=== PATIENT | female | born 1965 | race Caucasian/White ===

== ENCOUNTER 2016-11-23 18:22 | Emergency (ER) | payer MEDICARE, MEDICAID ==
[2016-11-23] MEDS ORDERED: FENTANYL CITRATE INJ/PF 100 MCG/2 ML AMPUL IV PRN (19:07)
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
[2016-11-23] MEDS ORDERED: KETOROLAC TROMETHAMINE INJ/PF 30 MG/1 ML SDV IV ONE (20:25)
[2016-11-23] MEDS ORDERED: HYDROCODONE/ACETAMINOPHEN 5-325 MG 6 TAB/DSPK PO PRN (20:26)
[2016-11-23] MEDS ORDERED: LIDOCAINE 5% (700 MG) TRANSDERMAL ADH..PATCH TP ONE (20:26)
[2016-11-23 21:06] VITALS: BP 138/98
== END 2016-11-23 20:57 | disposition home or self-care (01) ==
LOC: ER 18:22
DX: M54.2 Cervicalgia (principal); M54.5 Low back pain; V89.2XXA Person injured in unspecified motor-vehicle accident, traffic, initial encounter; Z98.1 Arthrodesis status
CPT/HCPCS: 99284; 96374; 72125; 72131; J3010; A9270

== ENCOUNTER → 2017-03-25 | Outpatient (CLI) | payer MEDICARE, MEDICAID ==
[2017-03-25 17:58] LABS: ABSOLUTE BASOPHILS # (AUTO) 0.1 10^3/uL (0.0-0.2); ABSOLUTE EOSINOPHILS # (AUTO) 0.5 10^3/uL (0.0-0.6); ABSOLUTE MONOCYTES (AUTO) 0.5 10^3/uL (0.1-1.4); BASOPHILS % (AUTO) 1.1 % (0-2); EOSINOPHILS % (AUTO) 6.8 % (0-6); HEMATOCRIT 40.8 % (36.0-47.0); HEMOGLOBIN 14.2 g/dL (12.0-15.5); HGB HCT DIFFERENCE 1.8; LYMPHOCYTES % (AUTO) 28.1 % (13-45); MEAN CORPUSCULAR HEMOGLOBIN 30.8 pg (27.0-33.4); MEAN CORPUSCULAR HGB CONC 34.9 g/dL (32.0-36.0); MEAN CORPUSCULAR VOLUME 89 fl (80-97); MONOCYTES % (AUTO) 7.5 % (3-13); RED BLOOD COUNT 4.61 10^6/uL (3.72-5.28); RED CELL DISTRIBUTION WIDTH 13.7 % (11.5-14.0); SEGMENTED NEUTROPHILS % (AUTO) 56.5 % (42-78); WHITE BLOOD COUNT 7.1 10^3/uL (4.0-10.5)
[2017-03-25 18:09] LABS: PROTHROMBIN TIME 12.6 SEC (11.4-15.4)
[2017-03-25 18:10] LABS: PARTIAL THROMBOPLASTIN TIME 28.1 SEC (23.5-35.8)
[2017-03-25 18:21] LABS: ALANINE AMINOTRANSFERASE 83 U/L (9-52); ALBUMIN 4.4 g/dL (3.5-5.0); ALKALINE PHOSPHATASE 62 U/L (38-126); ANION GAP 12 (5-19); ASPARTATE AMINO TRANSFERASE 64 U/L (14-36); BILIRUBIN,DIRECT 0.4 mg/dL (0.0-0.4); BILIRUBIN,TOTAL 0.5 mg/dL (0.2-1.3); BLOOD UREA NITROGEN 19 mg/dL (7-20); CALCIUM 9.9 mg/dL (8.4-10.2); CARBON DIOXIDE 23 mmol/L (22-30); CHLORIDE 105 mmol/L (98-107); CREATININE RESULT 0.88 mg/dL (0.52-1.25); GLUCOSE 84 mg/dL (75-110); MAGNESIUM 1.8 mg/dL (1.6-2.3); POTASSIUM 4.7 mmol/L (3.6-5.0); SODIUM 139.8 mmol/L (137-145); TOTAL PROTEIN 7.9 g/dL (6.3-8.2)
[2017-03-25 18:22] LABS: D-DIMER < 0.27 ug/mL (0.00-0.50)
== END ==
LOC: OD 16:52
PROVIDERS: ATTEND Physician Assistant Medical
DX: R53.83 Other fatigue (principal); R07.89 Other chest pain; R06.02 Shortness of breath; R55 Syncope and collapse
CPT/HCPCS: 36415; 80053; 83735; 83880; 84443; 85025; 85379; 85610; 85730

== ENCOUNTER → 2017-04-04 | Outpatient (CLI) | payer MEDICARE, MEDICAID ==
--- NOTE | 2017-04-04 18:52 | RADIOLOGY REPORT (SQ) ---
EXAM DESCRIPTION: CT ABD/PELVIS WITH IV ONLY COMPLETED DATE/TIME: 04/04/2017 6:28 pm REASON FOR STUDY: Unspecified abdominal pain, Nausea with vomiting, unspecified R10.9 UNSPECIFIED A BDOMINAL PAIN COMPARISON: 03/26/2012 TECHNIQUE: CT scan of the abdomen and pelvis performed using helical scanning technique with dynamic intravenous contrast injection. No oral contrast. Images reviewed with lung, soft tissue, and bone windows. Reconstructed coronal and sagittal MPR images reviewed. Delayed images for evaluation of the urinary system also acquired. All images stored on PACS. All CT scanners at this facility use dose modulation, iterative reconstruction, and/or weight based d osing when appropriate to reduce radiation dose to as low as reasonably achievable (ALARA). [facility]: Dose Right [facility]: CareDose [facility]: Dose Right [facility]: Teradose 4D [facility]: [employer] CONTRAST TYPE AND DOSE: contrast/concentration: Isovue 300.00 mg/ml; Total Contrast Delivered: 100.0 ml; Total Saline Delivered: 72.0 ml RENAL FUNCTION: Creatinine 0.9 BUN 18 RADIATION DOSE: Up-to-date CT equipment and radiation dose reduction techniques were employed. CTDIv ol: 9.4 - 12.8 mGy. DLP: 1143 mGy-cm.. LIMITATIONS: None. FINDINGS: LOWER CHEST: No significant findings. No nodules or infiltrates. LIVER: Normal size. No masses. No dilated ducts. SPLEEN: Normal size. No focal lesions. PANCREAS: No masses. No significant calcifications. No adjacent inflammation or peripancreatic fluid collections. Pancreatic duct not dilated. GALLBLADDER: Surgically absent. ADRENAL GLANDS: No significant masses or asymmetry. RIGHT KIDNEY AND URETER: Surgically absent. LEFT KIDNEY AND URETER: No solid masses. No significant calcifications. No hydronephrosis or hydr oureter. AORTA AND VESSELS: No aneurysm. No dissection. Renal arteries, SMA, celiac without stenosis. RETROPERITONEUM: There are multiple small nonspecific periaortic and mesenteric nodes. BOWEL AND PERITONEAL CAVITY: There are scattered sigmoid diverticula. History states is the patient is at a large part of her: Removed, but that is not evident on this study. APPENDIX: Not identified. PELVIS: Urinary bladder is normal. Uterus is absent. There is no adnexal mass or fluid collection. ABDOMINAL WALL: No masses. No hernias. BONES: No significant or acute findings. OTHER: No other significant finding. IMPRESSION: The study is essentially normal. There are multiple small nonspecific periaortic and me senteric nodes. TECHNICAL DOCUMENTATION: JOB ID: [id number] Quality ID # [id number]: Final reports with documentation of one or more dose reduction techniques (e.g., Au tomated exposure control, adjustment of the mA and/or kV according to patient size, use of iterative reconstruction technique) 2010 [email or web address]- All Rights Reserved
== END ==
LOC: RAD 17:19
PROVIDERS: ATTEND Physician Assistant Medical
DX: R10.9 Unspecified abdominal pain (principal); R11.2 Nausea with vomiting, unspecified
CPT/HCPCS: 74177

== ENCOUNTER → 2017-04-04 | Outpatient (CLI) | payer MEDICARE, MEDICAID ==
[2017-04-04 17:19] LABS: ABSOLUTE BASOPHILS # (AUTO) 0.1 10^3/uL (0.0-0.2); ABSOLUTE EOSINOPHILS # (AUTO) 0.5 10^3/uL (0.0-0.6); ABSOLUTE LYMPHOCYTES (AUTO) 1.9 10^3/uL (0.5-4.7); ABSOLUTE MONOCYTES (AUTO) 0.7 10^3/uL (0.1-1.4); ABSOLUTE NEUT (AUTO) 4.7 10^3/uL (1.7-8.2); BASOPHILS % (AUTO) 1.2 % (0-2); EOSINOPHILS % (AUTO) 6.3 % (0-6); HEMATOCRIT 41.5 % (36.0-47.0); HEMOGLOBIN 14.3 g/dL (12.0-15.5); HGB HCT DIFFERENCE 1.4; LYMPHOCYTES % (AUTO) 24.4 % (13-45); MEAN CORPUSCULAR HEMOGLOBIN 30.5 pg (27.0-33.4); MEAN CORPUSCULAR HGB CONC 34.4 g/dL (32.0-36.0); MEAN CORPUSCULAR VOLUME 89 fl (80-97); MONOCYTES % (AUTO) 8.6 % (3-13); RED BLOOD COUNT 4.67 10^6/uL (3.72-5.28); RED CELL DISTRIBUTION WIDTH 14.1 % (11.5-14.0); SEGMENTED NEUTROPHILS % (AUTO) 59.5 % (42-78)
[2017-04-04 17:45] LABS: ALBUMIN 4.5 g/dL (3.5-5.0); ALKALINE PHOSPHATASE 65 U/L (38-126); ANION GAP 12 (5-19); BILIRUBIN,DIRECT 0.4 mg/dL (0.0-0.4); BILIRUBIN,TOTAL 0.6 mg/dL (0.2-1.3); BLOOD UREA NITROGEN 18 mg/dL (7-20); CALCIUM 10.2 mg/dL (8.4-10.2); CARBON DIOXIDE 27 mmol/L (22-30); CHLORIDE 104 mmol/L (98-107); CREATININE RESULT 0.86 mg/dL (0.52-1.25); GLUCOSE 100 mg/dL (75-110); SODIUM 143.1 mmol/L (137-145); TOTAL PROTEIN 8.2 g/dL (6.3-8.2)
[2017-04-04 17:49] LABS: ALANINE AMINOTRANSFERASE 115 U/L (9-52); ASPARTATE AMINO TRANSFERASE 85 U/L (14-36); POTASSIUM 5.1 mmol/L (3.6-5.0)
== END ==
LOC: LAB 17:06
PROVIDERS: ATTEND Internal Medicine Cardiovascular Disease
DX: R10.9 Unspecified abdominal pain (principal); R11.2 Nausea with vomiting, unspecified
CPT/HCPCS: 36415; 80053; 83690; 85025

== ENCOUNTER 2017-05-25 06:24 | Emergency (ER) | payer MEDICARE, MEDICAID ==
[2017-05-25] MEDS ORDERED: HYDROMORPHONE HCL INJ/PF 2 MG/ML AMPULE IV ONE (06:53)
[2017-05-25] MEDS ORDERED: NORMAL SALINE 1000 ML 1,000 ML IV ONE (06:53)
[2017-05-25] MEDS ORDERED: ONDANSETRON HCL INJ/PF 4 MG/2 ML SDV IV ONE (06:53)
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
--- NOTE | 2017-05-25 07:27 | RADIOLOGY REPORT (SQ) ---
EXAM DESCRIPTION: ACUTE ABDOMEN SERIES COMPLETED DATE/TIME: 05/25/2017 7:17 am REASON FOR STUDY: abd pain, hx bowel resection COMPARISON: CT abdomen and pelvis 04/04/2017, chest x-ray 03/26/2012. NUMBER OF VIEWS: Three views. TECHNIQUE: Frontal chest, supine abdomen and upright/decubitus abdomen radiographic images acquired. LIMITATIONS: None. FINDINGS: CHEST: Lungs clear of infiltrates. FREE AIR: None. BOWEL GAS PATTERN: Nonobstructive pattern. No dilated loops or air fluid levels. CALCIFICATIONS: No suspicious calcifications. HARDWARE: Multiple surgical clips in the abdomen. SOFT TISSUES: No gross mass or suggestion of organomegaly. BONES: Healed fracture at the left clavicle. Postsurgical changes with orthopedic hardware placement at the lower lumbar spine. IMPRESSION: Nonobstructive bowel gas pattern. TECHNICAL DOCUMENTATION: JOB ID: [id number] [place]-64 2010 [employer]- All Rights Reserved
[2017-05-25 07:36] LABS: ABSOLUTE BASOPHILS # (AUTO) 0.1 10^3/uL (0.0-0.2); ABSOLUTE EOSINOPHILS # (AUTO) 0.3 10^3/uL (0.0-0.6); ABSOLUTE LYMPHOCYTES (AUTO) 1.4 10^3/uL (0.5-4.7); ABSOLUTE MONOCYTES (AUTO) 0.5 10^3/uL (0.1-1.4); ABSOLUTE NEUT (AUTO) 4.5 10^3/uL (1.7-8.2); BASOPHILS % (AUTO) 1.2 % (0-2); EOSINOPHILS % (AUTO) 5.1 % (0-6); HEMATOCRIT 40.8 % (36.0-47.0); HEMOGLOBIN 13.9 g/dL (12.0-15.5); HGB HCT DIFFERENCE 0.9; LYMPHOCYTES % (AUTO) 20.3 % (13-45); MEAN CORPUSCULAR HEMOGLOBIN 30.3 pg (27.0-33.4); MEAN CORPUSCULAR HGB CONC 34.1 g/dL (32.0-36.0); MEAN CORPUSCULAR VOLUME 89 fl (80-97); MONOCYTES % (AUTO) 7.7 % (3-13); RED BLOOD COUNT 4.58 10^6/uL (3.72-5.28); RED CELL DISTRIBUTION WIDTH 13.8 % (11.5-14.0); SEGMENTED NEUTROPHILS % (AUTO) 65.7 % (42-78); WHITE BLOOD COUNT 6.8 10^3/uL (4.0-10.5)
[2017-05-25 07:57] LABS: ALANINE AMINOTRANSFERASE 83 U/L (9-52); ALKALINE PHOSPHATASE 61 U/L (38-126); ANION GAP 11 (5-19); ASPARTATE AMINO TRANSFERASE 72 U/L (14-36); BILIRUBIN,DIRECT 0.4 mg/dL (0.0-0.4); BILIRUBIN,TOTAL 0.5 mg/dL (0.2-1.3); BLOOD UREA NITROGEN 15 mg/dL (7-20); CALCIUM 9.3 mg/dL (8.4-10.2); CARBON DIOXIDE 27 mmol/L (22-30); CHLORIDE 105 mmol/L (98-107); GLUCOSE 91 mg/dL (75-110); LIPASE 123.6 U/L (23-300); POTASSIUM 5.2 mmol/L (3.6-5.0); SODIUM 142.9 mmol/L (137-145); TOTAL PROTEIN 7.4 g/dL (6.3-8.2)
[2017-05-25] MEDS ORDERED: HALOPERIDOL LACTATE INJ 5 MG/1 ML VIAL IV ONE (08:14)
--- NOTE | 2017-05-25 11:08 | RADIOLOGY REPORT (SQ) ---
EXAM DESCRIPTION: CT ABD/PELVIS WITH IV ORAL COMPLETED DATE/TIME: 05/25/2017 10:49 am REASON FOR STUDY: LLQ pain, hx of bowel resection diverticulitis COMPARISON: March 2012 TECHNIQUE: CT scan of the abdomen and pelvis performed using helical scanning technique with dynamic intravenous contrast injection and oral contrast. Images reviewed with lung, soft tissue, and bone w indows. Reconstructed coronal and sagittal MPR images reviewed. Delayed images for evaluation of the urinary system also acquired. All images stored on PACS. All CT scanners at this facility use dose modulation, iterative reconstruction, and/or weight based d osing when appropriate to reduce radiation dose to as low as reasonably achievable (ALARA). [facility]: Dose Right [facility]: CareDose [facility]: Dose Right [facility]: Teradose 4D [facility]: I Do Now I Don't CONTRAST TYPE AND DOSE: contrast/concentration: Isovue 370.00 mg/ml; Total Contrast Delivered: 94.0 ml; Total Saline Delivered: 71.0 ml RENAL FUNCTION: Creatinine 0.9 RADIATION DOSE: Up-to-date CT equipment and radiation dose reduction techniques were employed. CTDIv ol: 13.0 - 16.4 mGy. DLP: 1572 mGy-cm.. LIMITATIONS: None. FINDINGS: LOWER CHEST: No significant findings. No nodules or infiltrates. LIVER: Normal size. No masses. No dilated ducts. SPLEEN: Normal size. No focal lesions. PANCREAS: No masses. No significant calcifications. No adjacent inflammation or peripancreatic fluid collections. Pancreatic duct not dilated. GALLBLADDER: Status post cholecystectomy ADRENAL GLANDS: No significant masses or asymmetry. RIGHT KIDNEY AND URETER: Status post right nephrectomy LEFT KIDNEY AND URETER: No solid masses. No significant calcifications. No hydronephrosis or hydr oureter. AORTA AND VESSELS: No aneurysm. No dissection. Renal arteries, SMA, celiac without stenosis. RETROPERITONEUM: No retroperitoneal adenopathy, hemorrhage or masses. BOWEL AND PERITONEAL CAVITY: No masses or inflammatory changes. No free fluid or peritoneal masses. APPENDIX: Status post appendectomy PELVIS: No mass. No free fluid. Normal bladder. Postsurgical changes are identified related to a pr ior bowel resection. ABDOMINAL WALL: No masses. No hernias. BONES: No significant or acute findings. OTHER: Postsurgical changes are identified at the lumbosacral junction IMPRESSION: NO SIGNIFICANT OR ACUTE FINDING IN THE ABDOMEN OR PELVIS. TECHNICAL DOCUMENTATION: JOB ID: [id number] Quality ID # [id number]: Final reports with documentation of one or more dose reduction techniques (e.g., Au tomated exposure control, adjustment of the mA and/or kV according to patient size, use of iterative reconstruction technique) 2010 [employer]- All Rights Reserved
[2017-05-25 12:04] VITALS: BP 129/84
--- NOTE | 2017-05-25 16:29 | PDOC CONSULTATION ---
Consultation Consult Date: 05/25/17 Attending physician:: BYRON ACEVEDO Consult reason:: Abdominal pain History of Present Illness Patient complains of: Abdominal pain for 2 weeks History of Present Illness: JUVENCIO BURNS is a 51 year old female with a long history of abdominal problems and surgeries. Recently she has been having abdominal pain for 2 weeks. She has had twice a day diarrhea to this time. Past Surgical History Past Surgical History: Reports: Section, Other - She has had multiple abdominal surgeries. Social History Smoking Status: Never Smoker Family History Family History: Reviewed & Not Pertinent Parental Family History Reviewed: No Children Family History Reviewed: No Sibling(s) Family History Reviewed.: No Medication/Allergy Home Medications: No Home Medications 05/25/17 Allergies/Adverse Reactions: cyclobenzaprine [From Flexeril] Allergy (Verified 05/25/17 07:43) methocarbamol [From Robaxin] Allergy (Verified 05/25/17 07:43) tramadol Allergy (Verified 05/25/17 07:43) Benzodiazepines Adverse Reaction (Verified 05/25/17 07:43) steroids Allergy (Uncoded 05/25/17 07:43) muscle relaxers Adverse Reaction (Uncoded 05/25/17 07:43) Physical Exam Vital Signs: Temp Pulse Resp BP Pulse Ox 98.0 F 89 18 129/84 H 100 05/25/17 12:03 05/25/17 12:03 05/25/17 12:03 05/25/17 12:03 05/25/17 12:03 Intake & Output 05/24/17 05/25/17 05/26/17 06:59 06:59 06:59 Weight 87.09 kg General appearance: PRESENT: no acute distress Head exam: PRESENT: atraumatic, normocephalic Eye exam: PRESENT: EOMI, PERRLA Ear exam: PRESENT: normal external ear exam Neck exam: PRESENT: full ROM Respiratory exam: PRESENT: clear to auscultation wolf. ABSENT: rales, rhonchi Cardiovascular exam: PRESENT: RRR Pulses: PRESENT: normal radial pulses GI/Abdominal exam: PRESENT: normal bowel sounds, soft. ABSENT: rebound, tenderness Rectal exam: PRESENT: deferred Extremities exam: PRESENT: full ROM Musculoskeletal exam: PRESENT: full ROM Neurological exam: PRESENT: alert, awake, oriented to person, oriented to place , oriented to time, oriented to situation Psychiatric exam: PRESENT: normal mood Skin exam: PRESENT: normal color Results Laboratory Results: 05/25/17 07:23 05/25/17 07:23 05/25/17 05/25/17 07:23 07:23 WBC 6.8 RBC 4.58 Hgb 13.9 Hct 40.8 MCV 89 MCH 30.3 MCHC 34.1 RDW 13.8 Plt Count 201 Seg Neutrophils % 65.7 Lymphocytes % 20.3 Monocytes % 7.7 Eosinophils % 5.1 Basophils % 1.2 Absolute Neutrophils 4.5 Absolute Lymphocytes 1.4 Absolute Monocytes 0.5 Absolute Eosinophils 0.3 Absolute Basophils 0.1 Sodium 142.9 Potassium 5.2 H Chloride 105 Carbon Dioxide 27 Anion Gap 11 BUN 15 Creatinine 0.90 Est GFR ( Amer) > 60 Est GFR (Non-Af Amer) > 60 Glucose 91 Calcium 9.3 Total Bilirubin 0.5 AST 72 H ALT 83 H Alkaline Phosphatase 61 Total Protein 7.4 Albumin 4.0 Lipase 123.6 Impressions: Abdomen/Pelvis CT 05/25/17 00:00 IMPRESSION: NO SIGNIFICANT OR ACUTE FINDING IN THE ABDOMEN OR PELVIS. Acute Abdomen Series 05/25/17 06:46 IMPRESSION: Nonobstructive bowel gas pattern. Status: Imported from PACS - I reviewed the CT scan and abdominal films and agree with the radiologist. Assessment & Plan - Diagnosis (1) Abdominal pain Qualifiers: Abdominal location: left lower quadrant Qualified Code(s): R10.32 - Left lower quadrant pain Plan: Feel this patient's primary problem is obstipation. She has a colon full of stool. I discussed with her and her bowel regimens for cleansing and maintenance of function. I discussed my findings with the ER physician. She does not have a surgical abdomen and does not require admission.
== END 2017-05-25 12:04 | disposition home or self-care (01) ==
LOC: ER 06:24
DX: K59.00 Constipation, unspecified (principal); R10.32 Left lower quadrant pain; R11.2 Nausea with vomiting, unspecified
CPT/HCPCS: 99285; 96361; 96374; 96375; 36415; 83690; 85025; 80053; 74022; 74177; J1630; J1170; J2405; J7030

== ENCOUNTER 2017-09-06 14:20 | Emergency (ER) | payer MEDICARE, MEDICAID ==
[2017-09-06] MEDS ORDERED: ONDANSETRON HCL INJ/PF 4 MG/2 ML SDV IV ONE (14:39)
[2017-09-06] MEDS ORDERED: NORMAL SALINE 1000 ML 1,000 ML IV ONE ×2 (14:40→15:42)
--- NOTE | 2017-09-06 14:42 | ER Document Report ---
ED Medical Screen (RME) - General Chief Complaint: Chest Pain Stated Complaint: CHEST PAIN Time Seen by Provider: 09/06/17 14:37 Notes: Patient complaining of inability to stop vomiting. Chest pain. Abdominal pain. Unable to answer questions at triage. Patient saying "help me, help me, do not let me !" I have greeted and performed a rapid initial assessment of this patient. A comprehensive ED assessment and evaluation of the patient, analysis of test results and completion of the medical decision making process will be conducted by additional ED providers. TRAVEL OUTSIDE OF THE [place] IN LAST 30 DAYS: No - Related Data Allergies/Adverse Reactions: cyclobenzaprine [From Flexeril] Allergy (Verified 09/06/17 14:39) methocarbamol [From Robaxin] Allergy (Verified 09/06/17 14:39) tramadol Allergy (Verified 09/06/17 14:39) Benzodiazepines Adverse Reaction (Verified 09/06/17 14:39) steroids Allergy (Uncoded 09/06/17 14:39) muscle relaxers Adverse Reaction (Uncoded 09/06/17 14:39) Past Medical History Renal/ Medical History: Denies: Hx Peritoneal Dialysis Past Surgical History: Reports: Hx Bowel Surgery, Hx Section, Other - She has had multiple abdominal surgeries. - Immunizations Hx Diphtheria, Pertussis, Tetanus Vaccination: Yes Physical Exam - Vital signs Vitals: Temp Pulse Resp BP Pulse Ox 98.1 F 123 H 20 132/92 H 98 09/06/17 14:34 09/06/17 14:34 09/06/17 14:34 09/06/17 14:34 09/06/17 14:34 Course - Vital Signs Vital signs: Temp Pulse Resp BP Pulse Ox 98.1 F 123 H 20 132/92 H 98 09/06/17 14:34 09/06/17 14:34 09/06/17 14:34 09/06/17 14:34 09/06/17 14:34
[2017-09-06] MEDS ORDERED: ONDANSETRON HCL INJ/PF 4 MG/2 ML SDV ONE (14:54)
[2017-09-06 15:25] LABS: ABSOLUTE BASOPHILS # (AUTO) 0.1 10^3/uL (0.0-0.2); ABSOLUTE EOSINOPHILS # (AUTO) 0.4 10^3/uL (0.0-0.6); ABSOLUTE LYMPHOCYTES (AUTO) 3.1 10^3/uL (0.5-4.7); ABSOLUTE MONOCYTES (AUTO) 0.7 10^3/uL (0.1-1.4); ABSOLUTE NEUT (AUTO) 5.1 10^3/uL (1.7-8.2); BASOPHILS % (AUTO) 1.1 % (0-2); EOSINOPHILS % (AUTO) 3.9 % (0-6); HEMATOCRIT 45.2 % (36.0-47.0); HEMOGLOBIN 15.3 g/dL (12.0-15.5); LYMPHOCYTES % (AUTO) 32.7 % (13-45); MEAN CORPUSCULAR HEMOGLOBIN 29.5 pg (27.0-33.4); MEAN CORPUSCULAR HGB CONC 33.8 g/dL (32.0-36.0); MEAN CORPUSCULAR VOLUME 87 fl (80-97); MONOCYTES % (AUTO) 7.9 % (3-13); PLATELET COUNT 261 10^3/uL (150-450); RED BLOOD COUNT 5.17 10^6/uL (3.72-5.28); RED CELL DISTRIBUTION WIDTH 15.4 % (11.5-14.0); SEGMENTED NEUTROPHILS % (AUTO) 54.4 % (42-78); TOTAL CELLS COUNTED % (AUTO) 100 %; WHITE BLOOD COUNT 9.4 10^3/uL (4.0-10.5)
--- NOTE | 2017-09-06 15:27 | RADIOLOGY REPORT (SQ) ---
EXAM DESCRIPTION: CT ABD/PELVIS NO ORAL OR IV COMPLETED DATE/TIME: 09/06/2017 3:11 pm REASON FOR STUDY: abd pain COMPARISON: 05/25/2017. TECHNIQUE: CT scan of the abdomen and pelvis performed without intravenous or oral contrast. Images reviewed with lung, soft tissue, and bone windows. Reconstructed coronal and sagittal MPR images revi ewed. All images stored on PACS. All CT scanners at this facility use dose modulation, iterative reconstruction, and/or weight based d osing when appropriate to reduce radiation dose to as low as reasonably achievable (ALARA). [facility]: Dose Right [facility]: CareDose [facility]: Dose Right [facility]: Teradose 4D [facility]: Augmenix RADIATION DOSE: CT Rad equipment meets quality standard of care and radiation dose reduction techniq ues were employed. CTDIvol: 10.7 mGy. DLP: 579 mGy-cm.mGy. LIMITATIONS: None. FINDINGS: LOWER CHEST: No significant findings. No nodules or infiltrates. NON-CONTRASTED LIVER, SPLEEN, ADRENALS: Evaluation limited by lack of IV contrast. No identified sign ificant masses. PANCREAS: No masses. No peripancreatic inflammatory changes. GALLBLADDER: Surgically absent. RIGHT KIDNEY AND URETER: Surgically absent. LEFT KIDNEY AND URETER: No solid masses. No significant calcification. No hydronephrosis or hydrouret er. AORTA AND RETROPERITONEUM: No aneurysm. No retroperitoneal masses or adenopathy. BOWEL AND PERITONEAL CAVITY: No obvious masses or inflammatory changes. No free fluid. APPENDIX: Normal. PELVIS, BLADDER, AND ABDOMINAL WALL:No abnormal masses. No free fluid. Bladder normal. BONES: No significant findings. Surgical changes in the spine with hardware. OTHER: No other significant finding. IMPRESSION: SURGICAL CHANGES. NO SIGNIFICANT OR ACUTE PROCESS IN THE ABDOMEN OR PELVIS. TECHNICAL DOCUMENTATION: JOB ID: [id number] Quality ID # [id number]: Final reports with documentation of one or more dose reduction techniques (e.g., Au tomated exposure control, adjustment of the mA and/or kV according to patient size, use of iterative reconstruction technique) 2010 [employer]- All Rights Reserved
--- NOTE | 2017-09-06 15:33 | RADIOLOGY REPORT (SQ) ---
EXAM DESCRIPTION: CHEST SINGLE VIEW COMPLETED DATE/TIME: 09/06/2017 3:26 pm REASON FOR STUDY: chest pain COMPARISON: 03/26/2012. EXAM PARAMETERS: NUMBER OF VIEWS: One view. TECHNIQUE: Single frontal radiographic view of the chest acquired. RADIATION DOSE: NA LIMITATIONS: None. FINDINGS: LUNGS AND PLEURA: No opacities, masses or pneumothorax. No pleural effusion. MEDIASTINUM AND HILAR STRUCTURES: No masses. Contour normal. HEART AND VASCULAR STRUCTURES: Heart normal in size. Normal vasculature. BONES: No acute findings. HARDWARE: None in the chest. OTHER: No other significant finding. IMPRESSION: NO ACUTE RADIOGRAPHIC FINDING IN THE CHEST. TECHNICAL DOCUMENTATION: JOB ID: [id number] [employer]- All Rights Reserved
[2017-09-06 15:58] LABS: ALANINE AMINOTRANSFERASE 86 U/L (9-52); ALBUMIN 4.6 g/dL (3.5-5.0); ALKALINE PHOSPHATASE 64 U/L (38-126); ANION GAP 16 (5-19); ASPARTATE AMINO TRANSFERASE 68 U/L (14-36); BILIRUBIN,DIRECT 0.5 mg/dL (0.0-0.4); BILIRUBIN,TOTAL 0.5 mg/dL (0.2-1.3); BLOOD UREA NITROGEN 17 mg/dL (7-20); CALCIUM 10.6 mg/dL (8.4-10.2); CARBON DIOXIDE 17 mmol/L (22-30); CHLORIDE 108 mmol/L (98-107); GLUCOSE 90 mg/dL (75-110); LIPASE 86.2 U/L (23-300); POTASSIUM 4.4 mmol/L (3.6-5.0); SODIUM 140.6 mmol/L (137-145); TOTAL PROTEIN 8.3 g/dL (6.3-8.2)
[2017-09-06] MEDS ORDERED: FAMOTIDINE INJ/PF 20 MG/2 ML SDV IV ONE (16:29)
[2017-09-06 17:41] LABS: APPEARANCE,URINE SLIGHTLY-CLOUDY; BILIRUBIN,URINE NEGATIVE (NEGATIVE); COLOR,URINE YELLOW; GLUCOSE, URINE NEGATIVE (NEGATIVE); KETONES,URINE NEGATIVE (NEGATIVE); LEUKOCYTE ESTERASE,URINE MODERATE (NEGATIVE); NITRITE,URINE NEGATIVE (NEGATIVE); PROTEIN,URINE 30 mg/dL (NEGATIVE); URINE SPECIFIC GRAVITY 1.002; UROBILINOGEN,URINE NEGATIVE mg/dL (<2.0)
[2017-09-06 17:50] LABS: URINE AMPHETAMINES SCREEN NEGATIVE; URINE BARBITURATES SCREEN NEGATIVE; URINE BENZODIAZEPINES SCREEN NEGATIVE; URINE COCAINE SCREEN NEGATIVE; URINE MARIJUANA (THC) SCREEN NEGATIVE; URINE METHADONE SCREEN NEGATIVE; URINE PHENCYCLIDINE SCREEN NEGATIVE
[2017-09-06 18:26] VITALS: BP 189/123
--- NOTE | 2017-09-06 18:31 | EKG REPORT ---
SEVERITY:- ABNORMAL ECG - SINUS TACHYCARDIA NONSPECIFIC ST-T CHANGES ANTERIOR LEADS : Confirmed by: Serafin Bustos MD 06-Sep-2017 18:29:56
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
== END 2017-09-06 18:30 | disposition left against medical advice (07) ==
LOC: ER 14:20
DX: R11.2 Nausea with vomiting, unspecified (principal); R19.7 Diarrhea, unspecified; R07.9 Chest pain, unspecified; R10.13 Epigastric pain; Z88.6 Allergy status to analgesic agent
CPT/HCPCS: 93005; 99285; 96361; 96374; 96375; 36415; 83690; 84703; 85025; 80053; 81001; 84484; 80307; 85379; 71045; 74176; 93010; J2405; J7030; S0028

== ENCOUNTER → 2017-10-23 | Outpatient (CLI) | payer MEDICARE, MEDICAID ==
--- NOTE | 2017-10-23 10:24 | RADIOLOGY REPORT (SQ) ---
EXAM DESCRIPTION: U/S RETROPERITON (RENAL/AORTA) COMPLETED DATE/TIME: 10/23/2017 9:41 am REASON FOR STUDY: RENAL ARTERY STENOSIS I10 ESSENTIAL (PRIMARY) HYPERTENSION I70.1 ATHEROSCLEROSIS OF RENAL ARTERY COMPARISON: None. TECHNIQUE: Dynamic and static grayscale images acquired of the kidneys and bladder and recorded on P ACS. Additional selected color Doppler and spectral images recorded. LIMITATIONS: None. FINDINGS: RIGHT KIDNEY: Status post right nephrectomy LEFT KIDNEY: 11.8 cm in length. Normal echogenicity. No solid or suspicious masses. No hydrone phrosis. No calcifications. BLADDER: No masses. OTHER FINDINGS: No other significant finding. IMPRESSION: Status post right nephrectomy. No significant left renal abnormalities are identified. TECHNICAL DOCUMENTATION: JOB ID: [id number] [employer]- All Rights Reserved Reading location - IP/workstation name: [email or web address]
--- NOTE | 2017-10-23 10:25 | RADIOLOGY REPORT (SQ) ---
EXAM DESCRIPTION: U/S LTD DUPLEX ART/MAGALY FLOW COMPLETED DATE/TIME: 10/23/2017 9:41 am REASON FOR STUDY: RENAL ARTERY STENOSIS I10 ESSENTIAL (PRIMARY) HYPERTENSION I70.1 ATHEROSCLEROSIS OF RENAL ARTERY COMPARISON: None. TECHNIQUE: Realtime and static grayscale images acquired. Selected color Doppler, velocities and spe ctral images recorded. LIMITATIONS: None. FINDINGS: RIGHT KIDNEY: KIDNEY: Status post right nephrectomy. LEFT KIDNEY: RENAL ARTERY VELOCITIES: 74 cm/sec. Segmental artery velocity 55 cm/sec. RENAL VEIN: Color doppler flow present, patent. VELOCITY RATIO: 1.13. Normal waveforms. KIDNEY: See results under renal ultrasound BLADDER: Normal. OTHER: No other significant finding. IMPRESSION: NO DOPPLER EVIDENCE OF HEMODYNAMICALLY SIGNIFICANT RENAL ARTERY STENOSIS in the left dorothy al artery. Patient is status post right nephrectomy. COMMENT: NORMAL RENAL ARTERY/AORTA VELOCITY RATIO IS LESS THAN OR EQUAL TO 3.5. TECHNICAL DOCUMENTATION: JOB ID: [id number] [employer]- All Rights Reserved Reading location - IP/workstation name: [email or web address]
== END ==
LOC: RAD 07:54
PROVIDERS: ATTEND Internal Medicine Cardiovascular Disease
DX: I10 Essential (primary) hypertension (principal); I70.1 Atherosclerosis of renal artery
CPT/HCPCS: 76770; 93976

== ENCOUNTER 2017-11-23 07:59 | Emergency (ER) | payer MEDICARE, MEDICAID ==
[2017-11-23] MEDS ORDERED: ONDANSETRON HCL INJ/PF 4 MG/2 ML SDV IV ONE (08:44)
[2017-11-23] MEDS ORDERED: NORMAL SALINE 1000 ML 1,000 ML IV ONE (08:44)
[2017-11-23] MEDS ORDERED: HYDROMORPHONE HCL INJ/PF 2 MG/ML AMPULE IV ONE ×3 (08:45→16:21)
--- NOTE | 2017-11-23 09:25 | EKG REPORT ---
SEVERITY:- OTHERWISE NORMAL ECG - SINUS TACHYCARDIA : Confirmed by: Mannie Tapia 23-Nov-2017 09:24:30
[2017-11-23 09:28] LABS: ABSOLUTE BASOPHILS # (AUTO) 0.1 10^3/uL (0.0-0.2); ABSOLUTE EOSINOPHILS # (AUTO) 0.1 10^3/uL (0.0-0.6); ABSOLUTE LYMPHOCYTES (AUTO) 1.6 10^3/uL (0.5-4.7); ABSOLUTE MONOCYTES (AUTO) 0.6 10^3/uL (0.1-1.4); ABSOLUTE NEUT (AUTO) 6.7 10^3/uL (1.7-8.2); EOSINOPHILS % (AUTO) 0.8 % (0-6); HEMATOCRIT 42.5 % (36.0-47.0); HEMOGLOBIN 14.4 g/dL (12.0-15.5); LYMPHOCYTES % (AUTO) 17.7 % (13-45); MEAN CORPUSCULAR HEMOGLOBIN 29.7 pg (27.0-33.4); MEAN CORPUSCULAR HGB CONC 33.9 g/dL (32.0-36.0); MEAN CORPUSCULAR VOLUME 88 fl (80-97); MONOCYTES % (AUTO) 6.7 % (3-13); PLATELET COUNT 270 10^3/uL (150-450); RED BLOOD COUNT 4.86 10^6/uL (3.72-5.28); RED CELL DISTRIBUTION WIDTH 13.9 % (11.5-14.0); SEGMENTED NEUTROPHILS % (AUTO) 73.8 % (42-78); TOTAL CELLS COUNTED % (AUTO) 100 %
[2017-11-23 09:34] LABS: ALANINE AMINOTRANSFERASE 71 U/L (9-52); ALBUMIN 3.9 g/dL (3.5-5.0); ALKALINE PHOSPHATASE 90 U/L (38-126); ANION GAP 13 (5-19); ASPARTATE AMINO TRANSFERASE 39 U/L (14-36); BILIRUBIN,DIRECT 0.2 mg/dL (0.0-0.4); BILIRUBIN,TOTAL 0.2 mg/dL (0.2-1.3); BLOOD UREA NITROGEN 16 mg/dL (7-20); CALCIUM 9.6 mg/dL (8.4-10.2); CARBON DIOXIDE 24 mmol/L (22-30); CHLORIDE 105 mmol/L (98-107); GLUCOSE 122 mg/dL (75-110); LIPASE 154.3 U/L (23-300); POTASSIUM 4.8 mmol/L (3.6-5.0); TOTAL PROTEIN 7.4 g/dL (6.3-8.2)
[2017-11-23 09:55] LABS: APPEARANCE,URINE CLOUDY; BILIRUBIN,URINE NEGATIVE (NEGATIVE); COLOR,URINE YELLOW; GLUCOSE, URINE NEGATIVE (NEGATIVE); KETONES,URINE NEGATIVE (NEGATIVE); LEUKOCYTE ESTERASE,URINE MODERATE (NEGATIVE); NITRITE,URINE NEGATIVE (NEGATIVE); PROTEIN,URINE 30 mg/dL (NEGATIVE); URINE SPECIFIC GRAVITY 1.019; UROBILINOGEN,URINE NEGATIVE mg/dL (<2.0)
[2017-11-23] MEDS ORDERED: CEFTRIAXONE INJ 1000 MG VIAL IV ONE (10:44)
[2017-11-23] MEDS ORDERED: FENTANYL CITRATE INJ/PF 100 MCG/2 ML AMPUL IV ONE (10:56)
--- NOTE | 2017-11-23 13:07 | RADIOLOGY REPORT (SQ) ---
EXAM DESCRIPTION: CT ABD/PELVIS WITH IV ORAL COMPLETED DATE/TIME: 11/23/2017 12:46 pm REASON FOR STUDY: epigastric/ruq pain, hx surgeries COMPARISON: 09/06/2017 in May [id number] TECHNIQUE: CT scan of the abdomen and pelvis performed using helical scanning technique with dynamic intravenous contrast injection. No oral contrast. Images reviewed with lung, soft tissue, and bone windows. Reconstructed coronal and sagittal MPR images reviewed. Delayed images for evaluation of the urinary system also acquired. All images stored on PACS. All CT scanners at this facility use dose modulation, iterative reconstruction, and/or weight based d osing when appropriate to reduce radiation dose to as low as reasonably achievable (ALARA). [facility]: Dose Right [facility]: CareDose [facility]: Dose Right [facility]: Teradose 4D [facility]: IdeaString CONTRAST TYPE AND DOSE: contrast/concentration: Isovue 300.00 mg/ml; Total Contrast Delivered: 97.0 ml; Total Saline Delivered: 72.0 ml RENAL FUNCTION: Creatinine measures 1.05 RADIATION DOSE: CT Rad equipment meets quality standard of care and radiation dose reduction techniq ues were employed. CTDIvol: 12.6 - 15.3 mGy. DLP: 1564 mGy-cm.. LIMITATIONS: None. FINDINGS: LOWER CHEST: No significant findings. No nodules or infiltrates. LIVER: Normal size. No masses. Stable degree of biliary ductal dilatation status post cholecystectom y. SPLEEN: Normal size. No focal lesions. PANCREAS: No masses. No significant calcifications. No adjacent inflammation or peripancreatic fluid collections. Pancreatic duct not dilated. GALLBLADDER: Surgically absent. ADRENAL GLANDS: No significant masses or asymmetry. RIGHT KIDNEY AND URETER: Status post right nephrectomy. LEFT KIDNEY AND URETER: No solid masses. No significant calcifications. No hydronephrosis or hydr oureter. AORTA AND VESSELS: No aneurysm. No dissection. Renal arteries, SMA, celiac without stenosis. RETROPERITONEUM: No retroperitoneal adenopathy, hemorrhage or masses. BOWEL AND PERITONEAL CAVITY: Stable postsurgical change. No masses or inflammatory changes. No free fluid or peritoneal masses. APPENDIX: Not visualized. PELVIS: No mass. No free fluid. Normal bladder. ABDOMINAL WALL: No masses. No hernias. BONES: Intact surgical hardware. No fracture or suspicious osseous lesion. OTHER: No other significant finding. IMPRESSION: NO ACUTE FINDINGS WITHIN THE ABDOMEN OR PELVIS. NO SIGNIFICANT CHANGE FROM PRIOR STUDY. TECHNICAL DOCUMENTATION: JOB ID: [id number] Quality ID # [id number]: Final reports with documentation of one or more dose reduction techniques (e.g., Au tomated exposure control, adjustment of the mA and/or kV according to patient size, use of iterative reconstruction technique) 2010 [employer]- All Rights Reserved Reading location - IP/workstation name: [email or web address]
[2017-11-23] MEDS ORDERED: MAG HYDROX/AL HYDROX/SIMETH SUSP 30 ML UDCUP PO ONE (13:10)
[2017-11-23] MEDS ORDERED: METOCLOPRAMIDE HCL ORAL SOLN 10 MG/10 ML UDCUP PO ONE (13:10)
[2017-11-23] MEDS ORDERED: LIDOCAINE 2% VISCOUS SOLN 20 ML UDCUP PO ONE (13:10)
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
[2017-11-23 14:54] LABS: URINE AMPHETAMINES SCREEN NEGATIVE; URINE BARBITURATES SCREEN NEGATIVE; URINE BENZODIAZEPINES SCREEN NEGATIVE; URINE COCAINE SCREEN NEGATIVE; URINE MARIJUANA (THC) SCREEN NEGATIVE; URINE METHADONE SCREEN NEGATIVE; URINE PHENCYCLIDINE SCREEN NEGATIVE
[2017-11-23] MEDS ORDERED: ONDANSETRON 4 MG TAB.RAPDIS PO ONE (16:22)
[2017-11-23] MEDS ORDERED: HYDROMORPHONE HCL INJ/PF 2 MG/ML AMPULE ONE (16:33)
[2017-11-23] MEDS ORDERED: ONDANSETRON 4 MG TAB.RAPDIS ONE (16:34)
[2017-11-23 16:53] VITALS: BP 115/82
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
== END 2017-11-23 16:53 | disposition home or self-care (01) ==
LOC: ER 07:59 → UNDOADMOB 14:40 → EH 14:40 → UNDODISOB 16:40 → ER 16:53
DX: R10.31 Right lower quadrant pain (principal); R10.13 Epigastric pain; N39.0 Urinary tract infection, site not specified; R00.0 Tachycardia, unspecified; R79.89 Other specified abnormal findings of blood chemistry; F10.11 Alcohol abuse, in remission; R51 Headache; R14.0 Abdominal distension (gaseous); R19.7 Diarrhea, unspecified; R10.11 Right upper quadrant pain; R11.2 Nausea with vomiting, unspecified; R05 Cough; Z90.49 Acquired absence of other specified parts of digestive tract; Z87.19 Personal history of other diseases of the digestive system; Z90.5 Acquired absence of kidney; Z87.442 Personal history of urinary calculi
CPT/HCPCS: 93005; 96376; 99285; 96361; 96375; 96365; 36415; 83690; 85025; 80053; 81001; 80307; 74177; 93010; A9270 ×2; J3010; J3490; J1170; J0696; J2405; J7030; S0119

== ENCOUNTER 2017-12-12 18:25 | Emergency (ER) | payer MEDICARE, MEDICAID ==
[2017-12-12] MEDS ORDERED: NORMAL SALINE 1000 ML 1,000 ML IV ONE ×2 (18:50→20:42)
[2017-12-12] MEDS ORDERED: ONDANSETRON HCL INJ/PF 4 MG/2 ML SDV IV ONE (18:50)
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
[2017-12-12 19:31] LABS: APPEARANCE,URINE SLIGHTLY-CLOUDY; BILIRUBIN,URINE NEGATIVE (NEGATIVE); COLOR,URINE YELLOW; GLUCOSE, URINE NEGATIVE (NEGATIVE); KETONES,URINE NEGATIVE (NEGATIVE); LEUKOCYTE ESTERASE,URINE MODERATE (NEGATIVE); NITRITE,URINE NEGATIVE (NEGATIVE); PROTEIN,URINE 30 mg/dL (NEGATIVE); URINE SPECIFIC GRAVITY 1.023
[2017-12-12] MEDS ORDERED: MAG HYDROX/AL HYDROX/SIMETH SUSP 30 ML UDCUP PO ONE (19:31)
[2017-12-12] MEDS ORDERED: LIDOCAINE 2% VISCOUS SOLN 20 ML UDCUP PO ONE (19:31)
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
[2017-12-12 19:58] LABS: ABSOLUTE BASOPHILS # (AUTO) 0.1 10^3/uL (0.0-0.2); ABSOLUTE EOSINOPHILS # (AUTO) 0.3 10^3/uL (0.0-0.6); ABSOLUTE LYMPHOCYTES (AUTO) 2.2 10^3/uL (0.5-4.7); ABSOLUTE MONOCYTES (AUTO) 0.5 10^3/uL (0.1-1.4); ABSOLUTE NEUT (AUTO) 3.6 10^3/uL (1.7-8.2); BASOPHILS % (AUTO) 1.2 % (0-2); LYMPHOCYTES % (AUTO) 33.6 % (13-45); MEAN CORPUSCULAR HEMOGLOBIN 30.1 pg (27.0-33.4); MEAN CORPUSCULAR HGB CONC 34.1 g/dL (32.0-36.0); MEAN CORPUSCULAR VOLUME 88 fl (80-97); MONOCYTES % (AUTO) 7.2 % (3-13); PLATELET COUNT 270 10^3/uL (150-450); RED BLOOD COUNT 4.64 10^6/uL (3.72-5.28); RED CELL DISTRIBUTION WIDTH 14.4 % (11.5-14.0); TOTAL CELLS COUNTED % (AUTO) 100 %; WHITE BLOOD COUNT 6.6 10^3/uL (4.0-10.5)
--- NOTE | 2017-12-12 19:58 | RADIOLOGY REPORT (SQ) ---
EXAM DESCRIPTION: CHEST 2 VIEWS COMPLETED DATE/TIME: 12/12/2017 7:50 pm REASON FOR STUDY: SOB COMPARISON: 09/06/2017 EXAM PARAMETERS: NUMBER OF VIEWS: two views TECHNIQUE: Digital Frontal and Lateral radiographic views of the chest acquired. RADIATION DOSE: NA LIMITATIONS: none FINDINGS: LUNGS AND PLEURA: No opacities, masses or pneumothorax. No pleural effusion. MEDIASTINUM AND HILAR STRUCTURES: No masses or contour abnormalities. HEART AND VASCULAR STRUCTURES: Heart normal size. No evidence for failure. BONES: No acute findings. HARDWARE: None in the chest. OTHER: No other significant finding. IMPRESSION: NO ACUTE RADIOGRAPHIC FINDING IN THE CHEST. TECHNICAL DOCUMENTATION: JOB ID: [id number] [employer]- All Rights Reserved Reading location - IP/workstation name: [email or web address]
--- NOTE | 2017-12-12 20:12 | RADIOLOGY REPORT (SQ) ---
EXAM DESCRIPTION: ABDOMEN 2 VIEWS COMPLETED DATE/TIME: 12/12/2017 8:02 pm REASON FOR STUDY: Chronic abdominal pain, adhesions, nausea vomiting COMPARISON: 05/25/2017 NUMBER OF VIEWS: Two views. TECHNIQUE: Supine and erect/ radiographic images of the abdomen acquired. LIMITATIONS: None. FINDINGS: FREE AIR: None. No abnormal gas collections. LUNG BASES: Clear. BOWEL GAS PATTERN: Nonobstructive pattern. No dilated loops or air fluid levels. CALCIFICATIONS: No suspicious calcifications. SOFT TISSUES: No gross mass or suggestion of organomegaly. HARDWARE: Lower lumbar rods. Surgical clips. BONES: No acute fracture. No worrisome bone lesions. OTHER: No other significant finding. IMPRESSION: NO RADIOGRAPHIC EVIDENCE FOR ACUTE ABDOMINAL DISEASE. TECHNICAL DOCUMENTATION: JOB ID: [id number] [employer]- All Rights Reserved Reading location - IP/workstation name: [email or web address]
[2017-12-12 20:19] LABS: ALANINE AMINOTRANSFERASE 64 U/L (9-52); ALKALINE PHOSPHATASE 63 U/L (38-126); ANION GAP 13 (5-19); ASPARTATE AMINO TRANSFERASE 78 U/L (14-36); BILIRUBIN,DIRECT 0.3 mg/dL (0.0-0.4); BILIRUBIN,TOTAL 0.3 mg/dL (0.2-1.3); BLOOD UREA NITROGEN 10 mg/dL (7-20); CALCIUM 9.5 mg/dL (8.4-10.2); CARBON DIOXIDE 27 mmol/L (22-30); CHLORIDE 108 mmol/L (98-107); GLUCOSE 103 mg/dL (75-110); LIPASE 213.3 U/L (23-300); POTASSIUM 4.7 mmol/L (3.6-5.0); SODIUM 147.7 mmol/L (137-145); TOTAL PROTEIN 7.7 g/dL (6.3-8.2)
[2017-12-12] MEDS ORDERED: HYDROMORPHONE HCL INJ/PF 2 MG/ML AMPULE IV ONE ×2 (20:35→21:14)
[2017-12-12] MEDS ORDERED: ONDANSETRON ODT 4 MG TAB (6 TAB/ER DISP) PO PRN (21:13)
[2017-12-12 22:11] VITALS: BP 141/89
== END 2017-12-12 22:11 | disposition home or self-care (01) ==
LOC: ER 18:25
DX: R06.02 Shortness of breath (principal); R10.84 Generalized abdominal pain; R11.2 Nausea with vomiting, unspecified; R10.13 Epigastric pain; Z90.5 Acquired absence of kidney; Z87.442 Personal history of urinary calculi; Z87.891 Personal history of nicotine dependence
CPT/HCPCS: 96376; 99284; 96361; 96374; 96375; 36415; 83690; 85025; 80053; 81001; 74019; 71046; J3490; J1170; J2405; J7030

== ENCOUNTER → 2017-12-18 | Outpatient (CLI) | payer MEDICARE, MEDICAID ==
--- NOTE | 2017-12-18 13:37 | RADIOLOGY REPORT (SQ) ---
EXAM DESCRIPTION: SMALL BOWEL SERIES COMPLETED DATE/TIME: 12/18/2017 1:17 pm REASON FOR STUDY: CONSTIPATION K59.00 CONSTIPATION, UNSPECIFIED COMPARISON: CT abdomen pelvis 11/23/2017, 09/06/2017, 05/25/2017, 04/04/2017, 03/26/2012 Abdominal radiographs 12/12/2017 FLUOROSCOPY TIME: 31 seconds 18 digital radiographic images saved to PACS. LIMITATIONS: None. PROCEDURE: Initial shot hole shooter image of abdomen acquired, followed by administration of oral contrast. Se rial radiographic images acquired. Fluoroscopic images recorded of the terminal ileum and other dorene cated areas. All images stored on PACS. FINDINGS: THEATRE MANAGER KUB: Non-obstructive bowel pattern. No abnormal calcifications. Soft tissue planes normal. There are surgical clips post right nephrectomy and cholecystectomy. Lumbar fusion hardwar e is present. STOMACH: No significant reflux. Normal distention without abnormality. DUODENUM: Normal mucosal pattern with adequate distention. No displacement or obstruction. JEJUNUM: Normal mucosal pattern. No dilatation, segmentation, strictures or masses. ILEUM: Normal mucosal pattern. No dilatation, segmentation, strictures or masses. TERMINAL ILEUM AND ILEO-CECAL VALVE: Normal mucosal pattern without "cobble-stoning" or stricture. N ormal compression. PROXIMAL COLON: Incompletely imaged. No abnormality. OTHER: No other significant finding. IMPRESSION: No evidence small bowel obstruction. Normal terminal ileum. COMMENT: Quality ID [id number]: Final reports for procedures using fluoroscopy that document radiation exp osure indices, or exposure time and number of fluorographic images (if radiation exposure indices are not available) TECHNICAL DOCUMENTATION: JOB ID: [id number] [employer]- All Rights Reserved Reading location - IP/workstation name: [email or web address]
== END ==
LOC: RAD 08:21
PROVIDERS: ATTEND Physician Assistant Surgical
DX: K59.00 Constipation, unspecified (principal)
CPT/HCPCS: 74250

== ENCOUNTER 2018-01-07 06:07 | Day surgery (SDC) | payer MEDICARE, MEDICAID ==
[~2018-01-07 06:07] MED LIST: ACETAMINOPHEN 325 MG TABLET PO PRN; LACTATED RINGERS 1000 ML IV PRN; LIDOCAINE 0.5% INJ-PF (5 MG/ML) 50 ML SDV SUBCUT PRN
[2018-01-07] MEDS ORDERED: PROPOFOL INJ 200 MG/20 ML VIAL IV ONE ×3 (07:41→08:13)
[2018-01-07] MEDS ORDERED: FENTANYL CITRATE INJ/PF 100 MCG/2 ML AMPUL IV PRN ×2 (08:09)
[2018-01-07] MEDS ORDERED: MEPERIDINE HCL/PF INJ 25 MG/1 ML DISP.SYRIN IV PRN (08:09)
[2018-01-07] MEDS ORDERED: OXYCODONE-ACETAMINOPHEN 5-325 MG TABLET PO PRN ×2 (08:09)
[2018-01-07] MEDS ORDERED: DIPHENHYDRAMINE HCL 50 MG/ML VIAL IV PRN (08:09)
[2018-01-07] MEDS ORDERED: PROMETHAZINE HCL INJ 25 MG/1 ML VIAL IV PRN ×2 (08:09)
[2018-01-07 10:14] VITALS: BP 154/101
--- NOTE | 2018-01-07 10:46 | Discharge Summary ---
Discharge Summary (SDC) - Discharge Final Diagnosis: abdominal pain, chronic constipation Date of Surgery: 01/07/18 Discharge Date: 01/07/18 Condition: Stable Forms: ASU Anesthesia D/C Instruction, Discharge POC-Surgical Service Referrals: MINDY MATHEW MD [ACTIVE STAFF] - 01/14/18 8:15 am Respiratory Treatments at Home: Deep Breathing/Coughing Discharge Activity: Activity As Tolerated, Balance Activity w/Rest, No Driving Home Care Assistance: None Needed Report the Following to Your Physician Immediately: Shortness of Breath, Vomiting, Increase in Pain, Fever over 101 Degrees, Unusual Bleeding, Large Clots, IV Site Infection Signs
--- NOTE | 2018-01-07 10:47 | Operative Report ---
Nonrecallable Operative Report DATE OF SURGERY: 01/07/18 PREOPERATIVE DIAGNOSIS: 1. Abdominal pain. 2. chronic constipation POSTOPERATIVE DIAGNOSIS: 1. Abdominal pain. 2. Constipation. 3. Diverticulosis. 4. Inadequate prep OPERATION: Colonoscopy to the cecum SURGEON: MINDY MATHEW ANESTHESIA: LMAC TISSUE REMOVED OR ALTERED: None COMPLICATIONS: None apparent ESTIMATED BLOOD LOSS: Minimal PROCEDURE: After informed consent was obtained, the patient was laid in the left lateral decubitus position. The endoscope was passed up the rectum, sigmoid colon, descending colon, across the transverse colon, down the ascending colon, and into the cecum. The ileocecal valve was identified. There was a large amount of retained solid stool throughout the colon, making identification of the appendiceal orifice impossible. The prep was inadequate. Only 50% of the colonic mucosa was adequately surveyed. No large masses or constricting lesions were identified. The colon was somewhat redundant. The scope was then withdrawn circumferentially noting the mucosa. The scope was pulled back past the ascending colon, transverse colon, descending colon, sigmoid colon, and into the rectum. A retroflexion maneuver was performed, noting no significant internal hemorrhoids. The scope was straightened, air was suctioned from the rectum, and the scope was removed. At this time the procedure was concluded. All sponge, instrument, and needle counts were correct 2. Condition: Stable.
== END 2018-01-07 10:08 | disposition home or self-care (01) ==
LOC: END 06:07
PROVIDERS: ATTEND Surgery
DX: K57.30 Diverticulosis of large intestine without perforation or abscess without bleeding (principal); R10.32 Left lower quadrant pain; K59.00 Constipation, unspecified; I10 Essential (primary) hypertension; Z88.5 Allergy status to narcotic agent; Z86.69 Personal history of other diseases of the nervous system and sense organs; Q60.0 Renal agenesis, unilateral; D64.9 Anemia, unspecified
CPT/HCPCS: 45378; J2704; 811

== ENCOUNTER 2020-06-25 05:38 | Emergency (ER) | payer MEDICARE, MEDICAID ==
[2020-06-25 06:08] VITALS: BP 187/103
[2020-06-25] MEDS ORDERED: ONDANSETRON HCL INJ/PF 4 MG/2 ML SDV IM ONE (06:08)
[2020-06-25 06:32] LABS: ABSOLUTE BASOPHILS # (AUTO) 0.1 10^3/uL (0.0-0.2); ABSOLUTE EOSINOPHILS # (AUTO) 0.1 10^3/uL (0.0-0.6); ABSOLUTE LYMPHOCYTES (AUTO) 2.1 10^3/uL (0.5-4.7); ABSOLUTE MONOCYTES (AUTO) 0.4 10^3/uL (0.1-1.4); ABSOLUTE NEUT (AUTO) 4.8 10^3/uL (1.7-8.2); BASOPHILS % (AUTO) 1.2 % (0-2); EOSINOPHILS % (AUTO) 0.9 % (0-6); HEMATOCRIT 51.1 % (36.0-47.0); HEMOGLOBIN 17.1 g/dL (12.0-15.5); LYMPHOCYTES % (AUTO) 28.3 % (13-45); MEAN CORPUSCULAR HEMOGLOBIN 33.9 pg (27.0-33.4); MEAN CORPUSCULAR HGB CONC 33.5 g/dL (32.0-36.0); MEAN CORPUSCULAR VOLUME 101 fl (80-97); PLATELET COUNT 186 10^3/uL (150-450); RED BLOOD COUNT 5.06 10^6/uL (3.72-5.28); RED CELL DISTRIBUTION WIDTH 13.6 % (11.5-14.0); SEGMENTED NEUTROPHILS % (AUTO) 64.6 % (42-78); TOTAL CELLS COUNTED % (AUTO) 100 %; WHITE BLOOD COUNT 7.4 10^3/uL (4.0-10.5)
[2020-06-25 06:48] LABS: ALKALINE PHOSPHATASE 74 U/L (38-126); ASPARTATE AMINO TRANSFERASE 92 U/L (14-36); BILIRUBIN,DIRECT 0.2 mg/dL (0.0-0.4); BILIRUBIN,TOTAL 0.7 mg/dL (0.2-1.3); BLOOD UREA NITROGEN 18 mg/dL (7-20); CALCIUM 10.2 mg/dL (8.4-10.2); CHLORIDE 101 mmol/L (98-107); GLUCOSE 115 mg/dL (75-110); POTASSIUM 4.3 mmol/L (3.6-5.0); TOTAL PROTEIN 9.3 g/dL (6.3-8.2)
[2020-06-25 06:54] LABS: CARBON DIOXIDE 20 mmol/L (22-30)
[2020-06-25 06:57] LABS: ANION GAP 20 (5-19)
[2020-06-25 07:00] LABS: APPEARANCE,URINE SLIGHTLY-CLOUDY; BILIRUBIN,URINE NEGATIVE (NEGATIVE); COLOR,URINE YELLOW; GLUCOSE, URINE NEGATIVE (NEGATIVE); KETONES,URINE NEGATIVE (NEGATIVE); LEUKOCYTE ESTERASE,URINE TRACE (NEGATIVE); NITRITE,URINE NEGATIVE (NEGATIVE); PROTEIN,URINE >=500 mg/dL (NEGATIVE); URINE SPECIFIC GRAVITY 1.029; UROBILINOGEN,URINE NEGATIVE mg/dL (<2.0)
--- NOTE | 2020-06-25 21:01 | EKG REPORT ---
SEVERITY:- ABNORMAL ECG - SINUS TACHYCARDIA BIATRIAL ABNORMALITIES BORDERLINE T ABNORMALITIES, ANT-LAT LEADS BORDERLINE PROLONGED QT INTERVAL : Confirmed by: Keya Major MD 25-Jun-2020 21:00:11
== END 2020-06-25 06:46 | disposition left against medical advice (07) ==
LOC: ER 05:38
DX: Z53.21 Procedure and treatment not carried out due to patient leaving prior to being seen by health care provider (principal)
CPT/HCPCS: 93005; 96372; 36415; 83690; 85025; 80053; 81001; 93010; J2405

== ENCOUNTER 2020-06-25 12:50 | Emergency (ER) | payer MEDICARE, MEDICAID ==
[2020-06-25] MEDS ORDERED: METOCLOPRAMIDE HCL INJ/PF 10 MG/2 ML SDV IM ONE (13:20)
[2020-06-25] MEDS ORDERED: NORMAL SALINE 1000 ML 1,000 ML IV ONE (13:21)
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
[2020-06-25] MEDS ORDERED: ONDANSETRON HCL INJ/PF 4 MG/2 ML SDV IV ONE (15:26)
[2020-06-25] MEDS ORDERED: MORPHINE SULFATE 10 MG/ML INJ IV ONE (15:27)
[2020-06-25] MEDS: RINGERS SOLUTION,LACTATED 1,000 ML IV PRN ×2 (16:00→17:04)
[2020-06-25] MEDS ORDERED: FENTANYL CITRATE INJ/PF 100 MCG/2 ML AMPUL IV ONE ×2 (16:35→18:16)
[2020-06-25 16:46] LABS: ALKALINE PHOSPHATASE 66 U/L (38-126); ANION GAP 15 (5-19); ASPARTATE AMINO TRANSFERASE 78 U/L (14-36); BILIRUBIN,DIRECT 0.5 mg/dL (0.0-0.4); BILIRUBIN,TOTAL 1.3 mg/dL (0.2-1.3); BLOOD UREA NITROGEN 21 mg/dL (7-20); CALCIUM 9.9 mg/dL (8.4-10.2); CARBON DIOXIDE 25 mmol/L (22-30); CHLORIDE 97 mmol/L (98-107); GLUCOSE 98 mg/dL (75-110); POTASSIUM 4.1 mmol/L (3.6-5.0); TOTAL PROTEIN 9.5 g/dL (6.3-8.2)
[2020-06-25 17:36] LABS: A TYPE INFLUENZA AG NEGATIVE (NEGATIVE); B INFLUENZA AG NEGATIVE (NEGATIVE)
[2020-06-25] MEDS ORDERED: PROMETHAZINE HCL INJ 25 MG/1 ML VIAL IV ONE (18:16)
[2020-06-25 18:24] LABS: ABSOLUTE BASOPHILS # (AUTO) 0.1 10^3/uL (0.0-0.2); ABSOLUTE LYMPHOCYTES (AUTO) 2.4 10^3/uL (0.5-4.7); ABSOLUTE MONOCYTES (AUTO) 0.7 10^3/uL (0.1-1.4); ABSOLUTE NEUT (AUTO) 4.4 10^3/uL (1.7-8.2); BASOPHILS % (AUTO) 1.1 % (0-2); EOSINOPHILS % (AUTO) 0.2 % (0-6); HEMATOCRIT 43.1 % (36.0-47.0); HEMOGLOBIN 15.2 g/dL (12.0-15.5); LYMPHOCYTES % (AUTO) 31.7 % (13-45); MEAN CORPUSCULAR HEMOGLOBIN 34.3 pg (27.0-33.4); MEAN CORPUSCULAR HGB CONC 35.3 g/dL (32.0-36.0); MONOCYTES % (AUTO) 9.4 % (3-13); PLATELET COUNT 208 10^3/uL (150-450); RED BLOOD COUNT 4.44 10^6/uL (3.72-5.28); SEGMENTED NEUTROPHILS % (AUTO) 57.6 % (42-78); TOTAL CELLS COUNTED % (AUTO) 100 %; WHITE BLOOD COUNT 7.6 10^3/uL (4.0-10.5)
[2020-06-25 18:34] LABS: MEAN CORPUSCULAR VOLUME 97 fl (80-97)
[2020-06-25] MEDS ORDERED: HYDROMORPHONE HCL INJ/PF 2 MG/ML AMPULE IV ONE (19:40)
--- NOTE | 2020-06-25 20:01 | RADIOLOGY REPORT (SQ) ---
EXAM DESCRIPTION: CT ABD/PELVIS WITH IV ORAL IMAGES COMPLETED DATE/TIME: 06/25/2020 7:35 pm REASON FOR STUDY: RLQ pain, multiple surgeries, eval appy v SBO COMPARISON: 11/23/2017 TECHNIQUE: CT scan of the abdomen and pelvis performed using helical scanning technique with dynamic intravenous contrast injection. No oral contrast. Images reviewed with lung, soft tissue, and bone w indows. Reconstructed coronal and sagittal MPR images reviewed. Delayed images for evaluation of the urinary system also acquired. All images stored on PACS. All CT scanners at this facility use dose modulation, iterative reconstruction, and/or weight based d osing when appropriate to reduce radiation dose to as low as reasonably achievable (ALARA). [facility]: Dose Right [facility]: CareDose [facility]: Dose Right [facility]: Teradose 4D [facility]: Broadersheet CONTRAST TYPE AND DOSE: contrast/concentration: Isovue 350.00 mmol/ml; Total Contrast Delivered: 100 .0 ml; Total Saline Delivered: 38.0 ml RENAL FUNCTION: GFR > 60. RADIATION DOSE: CT Rad equipment meets quality standard of care and radiation dose reduction techniq ues were employed. CTDIvol: 5.3 - 7.3 mGy. DLP: 693 mGy-cm.. LIMITATIONS: None. FINDINGS: LOWER CHEST: No significant findings. LIVER: Normal size. Mild fatty infiltration. No enhancing masses. No dilated ducts. SPLEEN: Normal size. No focal lesions. PANCREAS: No masses identified. No significant calcifications. No adjacent inflammation or peripancre atic fluid collections. Pancreatic duct not dilated. GALLBLADDER: Surgically absent. ADRENAL GLANDS: No significant masses. RIGHT KIDNEY AND URETER: Surgically absent. LEFT KIDNEY AND URETER: No cysts identified. No solid masses identified. No calcified stones. No hydr onephrosis or hydroureter. AORTA AND VESSELS: No aneurysm. No dissection. Renal arteries, SMA, celiac without significant stenos is. RETROPERITONEUM: No bulky retroperitoneal adenopathy. BOWEL AND PERITONEAL CAVITY: No obstruction or inflammatory changes. No free fluid. Diverticulosis. APPENDIX: Not visualized. PELVIS: No free fluid. Prior hysterectomy. Unremarkable bladder. ABDOMINAL WALL: No masses. No hernias. BONES: No acute findings. Posterior fusion at the L4-5 level, stable appearing. OTHER: No other significant finding. IMPRESSION: No acute inflammatory changes or free fluid. TECHNICAL DOCUMENTATION: JOB ID: [id number] Quality ID # [id number]: Final reports with documentation of one or more dose reduction techniques (e.g., Au tomated exposure control, adjustment of the mA and/or kV according to patient size, use of iterative reconstruction technique) 2010 [employer]- All Rights Reserved Reading location - IP/workstation name: [email or web address]
[2020-06-25 21:25] LABS: APPEARANCE,URINE CLEAR; BILIRUBIN,URINE NEGATIVE (NEGATIVE); COLOR,URINE YELLOW; GLUCOSE, URINE NEGATIVE (NEGATIVE); KETONES,URINE NEGATIVE (NEGATIVE); LEUKOCYTE ESTERASE,URINE NEGATIVE (NEGATIVE); NITRITE,URINE NEGATIVE (NEGATIVE); PROTEIN,URINE 30 mg/dL (NEGATIVE); URINE SPECIFIC GRAVITY 1.018; UROBILINOGEN,URINE NEGATIVE mg/dL (<2.0)
[2020-06-25] MEDS ORDERED: CEFTRIAXONE 1 GM/D5W RTU 1 GM/50 ML RTUPB IV ONE (21:57)
[2020-06-25] MEDS ORDERED: PHENAZOPYRIDINE HCL 100 MG TABLET PO ONE (21:58)
[2020-06-25] MEDS ORDERED: HYDROCODONE/ACETAMINOPHEN 5-325 MG TABLET PO ONE (22:03)
[2020-06-25 23:42] VITALS: BP 169/124
== END 2020-06-25 23:45 | disposition home or self-care (01) ==
LOC: ER 12:50
DX: N30.90 Cystitis, unspecified without hematuria (principal); R11.2 Nausea with vomiting, unspecified; R19.7 Diarrhea, unspecified; R10.31 Right lower quadrant pain; Z20.828 Contact with and (suspected) exposure to other viral communicable diseases
CPT/HCPCS: 99285; 96361; 96375; 96365; 36415; 87086; 83690; 87070; 81001; 87804; 74177; U0003; J3010; J2270; J1170; A9270 ×2; J2550; J2405; J7120; J0696; C9803; 87635; J3490

== ENCOUNTER 2020-06-26 17:52 | Emergency (ER) | payer MEDICARE, MEDICAID ==
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
[2020-06-26 20:51] LABS: ABSOLUTE BASOPHILS # (AUTO) 0.1 10^3/uL (0.0-0.2); ABSOLUTE LYMPHOCYTES (AUTO) 1.5 10^3/uL (0.5-4.7); ABSOLUTE MONOCYTES (AUTO) 0.5 10^3/uL (0.1-1.4); ABSOLUTE NEUT (AUTO) 5.3 10^3/uL (1.7-8.2); BASOPHILS % (AUTO) 1.2 % (0-2); EOSINOPHILS % (AUTO) 0.3 % (0-6); HEMATOCRIT 47.1 % (36.0-47.0); HEMOGLOBIN 16.4 g/dL (12.0-15.5); LYMPHOCYTES % (AUTO) 20.5 % (13-45); MEAN CORPUSCULAR HEMOGLOBIN 33.7 pg (27.0-33.4); MEAN CORPUSCULAR HGB CONC 34.8 g/dL (32.0-36.0); MEAN CORPUSCULAR VOLUME 97 fl (80-97); MONOCYTES % (AUTO) 6.8 % (3-13); PLATELET COUNT 206 10^3/uL (150-450); RED BLOOD COUNT 4.87 10^6/uL (3.72-5.28); RED CELL DISTRIBUTION WIDTH 13.2 % (11.5-14.0); SEGMENTED NEUTROPHILS % (AUTO) 71.2 % (42-78); TOTAL CELLS COUNTED % (AUTO) 100 %; WHITE BLOOD COUNT 7.5 10^3/uL (4.0-10.5)
--- NOTE | 2020-06-26 20:51 | RADIOLOGY REPORT (SQ) ---
EXAM DESCRIPTION: Site: CHEST SINGLE VIEW RP: XR CHEST 1 VIEW CLINICAL HISTORY: 54 years Female; chest pain; COMPARISON: 12/12/2017 FINDINGS: Lungs: Lungs are clear, with no focal infiltrate, pneumothorax, or pleural effusion. Mediastinum: Mediastinum is within normal limits for this positioning. Bones: Bony structures are unremarkable. Upper abdominal surgical clips are noted. IMPRESSION: 1. No acute pulmonary findings.
[2020-06-26 21:42] LABS: ALBUMIN 5.1 g/dL (3.5-5.0); ALKALINE PHOSPHATASE 58 U/L (38-126); ANION GAP 16 (5-19); ASPARTATE AMINO TRANSFERASE 81 U/L (14-36); BILIRUBIN,DIRECT 0.4 mg/dL (0.0-0.4); BILIRUBIN,TOTAL 1.3 mg/dL (0.2-1.3); BLOOD UREA NITROGEN 20 mg/dL (7-20); CALCIUM 10.3 mg/dL (8.4-10.2); CARBON DIOXIDE 27 mmol/L (22-30); CHLORIDE 95 mmol/L (98-107); GLUCOSE 96 mg/dL (75-110); POTASSIUM 4.1 mmol/L (3.6-5.0); TOTAL PROTEIN 9.4 g/dL (6.3-8.2)
[2020-06-26] MEDS ORDERED: ONDANSETRON HCL INJ/PF 4 MG/2 ML SDV IV ONE (22:52)
[2020-06-26] MEDS ORDERED: MORPHINE SULFATE 10 MG/ML INJ IV STA (22:52)
[2020-06-26] MEDS ORDERED: FAMOTIDINE INJ/PF 20 MG/2 ML SDV IV ONE (23:14)
[2020-06-26] MEDS ORDERED: PANTOPRAZOLE SODIUM 40 MG VIAL IV ONE (23:14)
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
[2020-06-26] MEDS ORDERED: NORMAL SALINE 1000 ML 1,000 ML IV ONE (23:18)
[2020-06-26 23:20] LABS: APPEARANCE,URINE CLEAR; BILIRUBIN,URINE NEGATIVE (NEGATIVE); COLOR,URINE AMBER; GLUCOSE, URINE NEGATIVE (NEGATIVE); KETONES,URINE 20 mg/dL (NEGATIVE); LEUKOCYTE ESTERASE,URINE NEGATIVE (NEGATIVE); NITRITE,URINE NEGATIVE (NEGATIVE); PROTEIN,URINE >=500 mg/dL (NEGATIVE); URINE SPECIFIC GRAVITY 1.026; UROBILINOGEN,URINE NEGATIVE mg/dL (<2.0)
[2020-06-26 23:47] LABS: ALCOHOL < 10 mg/dL (NONE DETECTED)
--- NOTE | 2020-06-26 23:54 | RADIOLOGY REPORT (SQ) ---
EXAM DESCRIPTION: X-RAY ABDOMEN, two VIEWS CLINICAL HISTORY: Abdominal pain COMPARISON: CT abdomen and pelvis June 25, 2020 TECHNIQUE: Two views of the abdomen and pelvis. FINDINGS: The visualized lung bases are clear. There is no evidence of free air under the hemidiaphragms. Bowel gas pattern is nonspecific. Inspissated stool is present in the right hemiabdomen. Surgical clips are present in the right abdomen. Presumed anastomotic bowel sutures are present in the region of the sigmoid colon. Postoperative changes consistent with instrumented posterior spinal fusion at the L4-5 level. Osseous structures appear grossly intact. IMPRESSION: Nonspecific bowel gas pattern with inspissated appearing stool in the right hemiabdomen.
[2020-06-27] MEDS ORDERED: PANTOPRAZOLE SODIUM 40 MG VIAL IV ONE ×2 (00:06→00:57)
--- NOTE | 2020-06-27 00:36 | EKG REPORT ---
SEVERITY:- ABNORMAL ECG - SINUS RHYTHM LEFT ATRIAL ABNORMALITY : Confirmed by: Keya Major MD 27-Jun-2020 00:35:02
[2020-06-27] MEDS ORDERED: MORPHINE SULFATE 10 MG/ML INJ IV ONE (00:58)
[2020-06-27] MEDS ORDERED: ACETAMINOPHEN 325 MG TABLET PO ONE (01:05)
[2020-06-27] MEDS ORDERED: ACETAMINOPHEN 325 MG TABLET ONE (01:05)
[2020-06-27] MEDS ORDERED: HYDROCODONE/ACETAMINOPHEN 5-325 MG (6 TAB/ER DISP) PO PRN (02:00)
[2020-06-27 02:13] VITALS: BP 152/115
== END 2020-06-27 02:14 | disposition home or self-care (01) ==
LOC: ER 17:52
DX: N30.90 Cystitis, unspecified without hematuria (principal); R10.9 Unspecified abdominal pain; R10.817 Generalized abdominal tenderness; R11.2 Nausea with vomiting, unspecified; R19.7 Diarrhea, unspecified; Z90.49 Acquired absence of other specified parts of digestive tract; Z87.19 Personal history of other diseases of the digestive system; Z87.828 Personal history of other (healed) physical injury and trauma; Z88.6 Allergy status to analgesic agent; Z88.8 Allergy status to other drugs, medicaments and biological substances; Z90.5 Acquired absence of kidney
CPT/HCPCS: 93005; 96376; 99285; 96361; 96374; 96375 ×2; 36415; 80307; 83605; 83690; 85025; 80053; 81001; 84484; 74019; 71045; 93010; A9270 ×2; J2270 ×2; C9113; J2405; J7030; S0028

== ENCOUNTER 2020-07-21 17:40 | Emergency (ER) | payer OTHER, MEDICARE, MEDICAID ==
[2020-07-21] MEDS ORDERED: ACETAMINOPHEN 325 MG TABLET PO ONE (21:19)
[2020-07-21 21:22] LABS: ABSOLUTE EOSINOPHILS # (AUTO) 0.2 10^3/uL (0.0-0.6); ABSOLUTE LYMPHOCYTES (AUTO) 2.7 10^3/uL (0.5-4.7); ABSOLUTE MONOCYTES (AUTO) 0.6 10^3/uL (0.1-1.4); ABSOLUTE NEUT (AUTO) 3.8 10^3/uL (1.7-8.2); BASOPHILS % (AUTO) 0.4 % (0-2); LYMPHOCYTES % (AUTO) 36.9 % (13-45); RED CELL DISTRIBUTION WIDTH 12.5 % (11.5-14.0); TOTAL CELLS COUNTED % (AUTO) 100 %
[2020-07-21 21:26] LABS: EOSINOPHILS % (AUTO) 2.5 % (0-6); HEMATOCRIT 44.5 % (36.0-47.0); HEMOGLOBIN 15.1 g/dL (12.0-15.5); MEAN CORPUSCULAR HEMOGLOBIN 32.5 pg (27.0-33.4); MEAN CORPUSCULAR HGB CONC 33.9 g/dL (32.0-36.0); MEAN CORPUSCULAR VOLUME 96 fl (80-97); MONOCYTES % (AUTO) 8.1 % (3-13); PLATELET COUNT 254 10^3/uL (150-450); RED BLOOD COUNT 4.64 10^6/uL (3.72-5.28); SEGMENTED NEUTROPHILS % (AUTO) 52.1 % (42-78); WHITE BLOOD COUNT 7.3 10^3/uL (4.0-10.5)
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
[2020-07-21 21:34] LABS: ALBUMIN 3.8 g/dL (3.5-5.0); ALKALINE PHOSPHATASE 49 U/L (38-126); ANION GAP 9 (5-19); ASPARTATE AMINO TRANSFERASE 52 U/L (14-36); BILIRUBIN,DIRECT 0.2 mg/dL (0.0-0.4); BILIRUBIN,TOTAL 0.4 mg/dL (0.2-1.3); BLOOD UREA NITROGEN 16 mg/dL (7-20); CALCIUM 9.5 mg/dL (8.4-10.2); CARBON DIOXIDE 23 mmol/L (22-30); CHLORIDE 107 mmol/L (98-107); GLUCOSE 98 mg/dL (75-110); POTASSIUM 4.3 mmol/L (3.6-5.0); TOTAL PROTEIN 7.7 g/dL (6.3-8.2)
[2020-07-21 21:55] LABS: BILIRUBIN,URINE NEGATIVE (NEGATIVE); GLUCOSE, URINE NEGATIVE (NEGATIVE); KETONES,URINE NEGATIVE (NEGATIVE); LEUKOCYTE ESTERASE,URINE TRACE (NEGATIVE); NITRITE,URINE POSITIVE (NEGATIVE); PROTEIN,URINE 100 mg/dL (NEGATIVE); URINE SPECIFIC GRAVITY 1.008; UROBILINOGEN,URINE NEGATIVE mg/dL (<2.0)
[2020-07-21 21:56] LABS: APPEARANCE,URINE CLOUDY; COLOR,URINE RED
[2020-07-21] MEDS ORDERED: DIPHENHYDRAMINE HCL 50 MG/ML VIAL IV ONE (22:05)
[2020-07-21 22:16] LABS: URINE AMPHETAMINES SCREEN NEGATIVE; URINE BARBITURATES SCREEN NEGATIVE; URINE BENZODIAZEPINES SCREEN NEGATIVE; URINE COCAINE SCREEN NEGATIVE; URINE MARIJUANA (THC) SCREEN NEGATIVE; URINE METHADONE SCREEN NEGATIVE; URINE PHENCYCLIDINE SCREEN NEGATIVE
[2020-07-21] MEDS ORDERED: KETAMINE HCL INJ 500 MG/10 ML VIAL IV ONE (22:36)
--- NOTE | 2020-07-22 00:19 | RADIOLOGY REPORT (SQ) ---
EXAM DESCRIPTION: MRI LUMBAR SPINE WITHOUT RadLex: MR LUMBAR SPINE WITHOUT IV CONTRAST CLINICAL HISTORY: 54 years Female; Right lower extremity numbness; TECHNIQUE: Noncontrast MRI lumbar spine. COMPARISON: CT abdomen pelvis 07/21/2020 FINDINGS: Alignment is anatomic. L1-L2: Minimal degenerative disc signal changes. No stenosis. L2-L3: No stenosis L3-L4: Facet arthropathy. No stenosis. L4-L5: Previous PLIF. Artifact from intervertebral spacer. There is fusion across the disc space. No central or foraminal stenosis. L5-S1: No stenosis. There is mild edema in the posterior paraspinal muscles at L5-S2. No other soft tissue edema. No epidural fluid collections. No nerve root clumping or thickening. IMPRESSION: 1. Previous L4-L5 PLIF 2. No central or foraminal stenosis 3. No acute bone findings 4. Mild posterior paravertebral muscular edema at the lumbosacral junction, likely muscular strain injury.
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
[2020-07-22] MEDS ORDERED: HYDROCODONE/ACETAMINOPHEN 5-325 MG TABLET PO ONE (01:01)
[2020-07-22] MEDS ORDERED: CEPHALEXIN 500 MG CAPSULE PO ONE (01:27)
[2020-07-22] MEDS ORDERED: NORMAL SALINE 1000 ML 1,000 ML IV ONE (01:33)
[2020-07-22 02:25] VITALS: BP 160/125
== END 2020-07-22 02:23 | disposition home or self-care (01) ==
LOC: ER 17:40
DX: R20.0 Anesthesia of skin (principal); R20.2 Paresthesia of skin; R60.0 Localized edema; R07.9 Chest pain, unspecified; R10.9 Unspecified abdominal pain; V49.40XA Driver injured in collision with unspecified motor vehicles in traffic accident, initial encounter; Y93.89 Activity, other specified; N30.00 Acute cystitis without hematuria; M47.812 Spondylosis without myelopathy or radiculopathy, cervical region; Z90.5 Acquired absence of kidney; Z87.891 Personal history of nicotine dependence; Z88.6 Allergy status to analgesic agent; Z88.8 Allergy status to other drugs, medicaments and biological substances
CPT/HCPCS: 99285; 96361; 96374; 96375; 36415; 80307 ×2; 85025; 80053; 81001; 72148; 70450; 71260; 72125; 74177; J1200; J3490; J7030